=== PATIENT | male | born 1990 | race Caucasian/White ===

== ENCOUNTER → 2021-08-25 | Outpatient (CLI) | payer OTHER ==
[~2021-08-25] MED LIST: ADDERAL; CODACE30 PO; GENT.3OPSA IO; IMIP10; RXCODACET PO; TYLENOL 650 MG
== END ==
LOC: LAB 19:25 → LAB SHORT 19:25
DX: S81.802A Unspecified open wound, left lower leg, initial encounter (principal)
CPT/HCPCS: 87070; 87075; 87205

== ENCOUNTER 2021-08-31 05:47 | Day surgery (SDC) | payer SELFPAY | END 2021-08-31 23:00 | disposition home or self-care (01) | LOC: WOUND 05:47 | DX: S81.802A Unspecified open wound, left lower leg, initial encounter (principal); X58.XXXA Exposure to other specified factors, initial encounter | CPT/HCPCS: A9270 ==

== ENCOUNTER 2021-09-10 01:16 | Day surgery (SDC) | payer SELFPAY | END 2021-09-10 22:58 | disposition home or self-care (01) | LOC: WOUND 01:16 | DX: L97.822 Non-pressure chronic ulcer of other part of left lower leg with fat layer exposed (principal) | CPT/HCPCS: A9270; G0463 ==

== ENCOUNTER 2025-03-20 22:52 | Emergency (ER) | payer SELFPAY ==
[~2025-03-20] VITALS: Ht 167.6 cm; Wt 127.0 kg
[2025-03-20 23:45] VITALS: BP 139/104
== END 2025-03-21 00:58 | disposition home or self-care (01) ==
LOC: ER 22:52
DX: S81.801A Unspecified open wound, right lower leg, initial encounter (principal); V86.55XA Driver of 3- or 4- wheeled all-terrain vehicle (ATV) injured in nontraffic accident, initial encounter
CPT/HCPCS: 99282

== ENCOUNTER 2025-04-05 12:59 | Emergency (ER) | payer OTHER ==
[~2025-04-05] VITALS: Ht 167.6 cm; Wt 127.0 kg
[2025-04-05 14:48] VITALS: BP 173/113
[2025-04-05] MEDS ORDERED: Cephalexin Monohydrate 500 MG Cap PO ONE (14:50)
[2025-04-05] MEDS ORDERED: Diphth,Pertuss(Acell),Tet Vac 0.5 ML VIAL IM ONE (14:50)
[2025-04-05] MEDS ORDERED: CEPH500 PO (14:51)
== END 2025-04-05 16:30 | disposition home or self-care (01) ==
LOC: ER 12:59
DX: S81.831D Puncture wound without foreign body, right lower leg, subsequent encounter (principal); L03.115 Cellulitis of right lower limb; V86.55XD Driver of 3- or 4- wheeled all-terrain vehicle (ATV) injured in nontraffic accident, subsequent encounter; Z59.89 Other problems related to housing and economic circumstances; Z79.2 Long term (current) use of antibiotics; Z79.899 Other long term (current) drug therapy
CPT/HCPCS: 90471; 90715; 99283-25; A9270

== ENCOUNTER 2025-05-29 03:15 | Day surgery (SDC) | payer OTHER ==
[~2025-05-29 03:15] MED LIST changes: +CEPH500 PO
[2025-05-29] MEDS ORDERED: Lidocaine HCl 4% Cream 5 GM ONE (13:44)
== END 2025-05-29 23:00 | disposition home or self-care (01) ==
LOC: WOUND 03:15
DX: L97.812 Non-pressure chronic ulcer of other part of right lower leg with fat layer exposed (principal); L97.822 Non-pressure chronic ulcer of other part of left lower leg with fat layer exposed; I87.2 Venous insufficiency (chronic) (peripheral)
CPT/HCPCS: A6213; A9270; G0463

== ENCOUNTER 2025-06-05 01:55 | Day surgery (SDC) | payer OTHER ==
[2025-06-05] MEDS ORDERED: Lidocaine HCl 4% Cream 5 GM ONE (11:27)
== END 2025-06-05 23:00 | disposition home or self-care (01) ==
LOC: WOUND 01:55
DX: L97.812 Non-pressure chronic ulcer of other part of right lower leg with fat layer exposed (principal); L97.822 Non-pressure chronic ulcer of other part of left lower leg with fat layer exposed; I87.2 Venous insufficiency (chronic) (peripheral)
CPT/HCPCS: A6213; A9270

== ENCOUNTER 2025-06-12 03:40 | Day surgery (SDC) | payer OTHER ==
[2025-06-12] MEDS ORDERED: Lidocaine HCl 4% Cream 5 GM ONE (10:59)
== END 2025-06-12 23:00 | disposition home or self-care (01) ==
LOC: WOUND 03:40
DX: L97.812 Non-pressure chronic ulcer of other part of right lower leg with fat layer exposed (principal); L97.822 Non-pressure chronic ulcer of other part of left lower leg with fat layer exposed; I87.2 Venous insufficiency (chronic) (peripheral)
CPT/HCPCS: A6213; A9270

== ENCOUNTER 2025-06-19 03:04 | Day surgery (SDC) | payer OTHER ==
[2025-06-19] MEDS ORDERED: Lidocaine HCl 4% Cream 5 GM ONE (13:28)
== END 2025-06-19 23:00 | disposition home or self-care (01) ==
LOC: WOUND 03:04
DX: L97.812 Non-pressure chronic ulcer of other part of right lower leg with fat layer exposed (principal); L97.822 Non-pressure chronic ulcer of other part of left lower leg with fat layer exposed; I87.2 Venous insufficiency (chronic) (peripheral)
CPT/HCPCS: A6213; A9270

== ENCOUNTER 2025-06-26 03:44 | Day surgery (SDC) | payer OTHER ==
[2025-06-26] MEDS ORDERED: Lidocaine HCl 4% Cream 5 GM ONE (12:55)
== END 2025-06-26 23:00 | disposition home or self-care (01) ==
LOC: WOUND 03:44
DX: L97.812 Non-pressure chronic ulcer of other part of right lower leg with fat layer exposed (principal); L97.822 Non-pressure chronic ulcer of other part of left lower leg with fat layer exposed; I87.2 Venous insufficiency (chronic) (peripheral)
CPT/HCPCS: A6213; A9270

== ENCOUNTER → 2025-07-03 | Day surgery (SDC) | payer OTHER ==
[~2025-07-03] MED LIST changes: +Lidocaine HCl 4% Cream 5 GM ONE
== END | disposition home or self-care (01) ==
LOC: WOUND
DX: L97.812 Non-pressure chronic ulcer of other part of right lower leg with fat layer exposed (principal); L97.822 Non-pressure chronic ulcer of other part of left lower leg with fat layer exposed; I87.2 Venous insufficiency (chronic) (peripheral)
CPT/HCPCS: A6213; A9270

== ENCOUNTER 2025-07-17 07:52 | Day surgery (SDC) | payer OTHER ==
[~2025-07-17 07:52] MED LIST changes: -Lidocaine HCl 4% Cream 5 GM ONE
[2025-07-17] MEDS ORDERED: Lidocaine HCl 4% Cream 5 GM ONE (14:50)
== END 2025-07-17 23:00 | disposition home or self-care (01) ==
LOC: WOUND 07:52
DX: L97.812 Non-pressure chronic ulcer of other part of right lower leg with fat layer exposed (principal); L97.822 Non-pressure chronic ulcer of other part of left lower leg with fat layer exposed; I87.2 Venous insufficiency (chronic) (peripheral)
CPT/HCPCS: A6213; A9270

== ENCOUNTER 2025-07-24 04:23 | Day surgery (SDC) | payer OTHER ==
[2025-07-24] MEDS ORDERED: Lidocaine HCl 4% Cream 5 GM ONE (13:05)
== END 2025-07-24 23:00 | disposition home or self-care (01) ==
LOC: WOUND 04:23
DX: L97.815 Non-pressure chronic ulcer of other part of right lower leg with muscle involvement without evidence of necrosis (principal); L97.822 Non-pressure chronic ulcer of other part of left lower leg with fat layer exposed; T14.8XXD Other injury of unspecified body region, subsequent encounter; I87.2 Venous insufficiency (chronic) (peripheral)
CPT/HCPCS: A6213; A9270

== ENCOUNTER 2025-07-31 02:52 | Day surgery (SDC) | payer OTHER ==
[2025-07-31] MEDS ORDERED: Lidocaine HCl 4% Cream 5 GM ONE (13:00)
== END 2025-07-31 23:00 | disposition home or self-care (01) ==
LOC: WOUND 02:52
DX: L97.812 Non-pressure chronic ulcer of other part of right lower leg with fat layer exposed (principal); L97.822 Non-pressure chronic ulcer of other part of left lower leg with fat layer exposed; T14.8XXA Other injury of unspecified body region, initial encounter; I87.2 Venous insufficiency (chronic) (peripheral); X58.XXXA Exposure to other specified factors, initial encounter
CPT/HCPCS: A6213; A9270

== ENCOUNTER 2025-08-07 02:18 | Day surgery (SDC) | payer OTHER ==
[2025-08-07] MEDS ORDERED: Lidocaine HCl 4% Cream 5 GM ONE (14:38)
== END 2025-08-07 23:00 | disposition home or self-care (01) ==
LOC: WOUND 02:18
DX: L97.815 Non-pressure chronic ulcer of other part of right lower leg with muscle involvement without evidence of necrosis (principal); S81.802D Unspecified open wound, left lower leg, subsequent encounter; X58.XXXD Exposure to other specified factors, subsequent encounter; I87.2 Venous insufficiency (chronic) (peripheral)
CPT/HCPCS: A6213; A9270; G0463

== ENCOUNTER 2025-08-14 02:31 | Day surgery (SDC) | payer OTHER ==
[2025-08-14] MEDS ORDERED: Lidocaine HCl 4% Cream 5 GM ONE (13:32)
== END 2025-08-14 23:00 | disposition home or self-care (01) ==
LOC: WOUND 02:31
DX: L97.812 Non-pressure chronic ulcer of other part of right lower leg with fat layer exposed (principal); L97.822 Non-pressure chronic ulcer of other part of left lower leg with fat layer exposed; T14.8XXD Other injury of unspecified body region, subsequent encounter; I87.2 Venous insufficiency (chronic) (peripheral)
CPT/HCPCS: A6213; A9270

== ENCOUNTER 2025-08-21 04:40 | Day surgery (SDC) | payer OTHER ==
[2025-08-21] MEDS ORDERED: Lidocaine HCl 4% Cream 5 GM ONE (09:53)
== END 2025-08-21 23:00 | disposition home or self-care (01) ==
LOC: WOUND 04:40
DX: L97.812 Non-pressure chronic ulcer of other part of right lower leg with fat layer exposed (principal); L97.822 Non-pressure chronic ulcer of other part of left lower leg with fat layer exposed; T14.8XXD Other injury of unspecified body region, subsequent encounter; I87.2 Venous insufficiency (chronic) (peripheral)
CPT/HCPCS: 93971; A6213; A9270

== ENCOUNTER 2025-08-28 02:15 | Day surgery (SDC) | payer OTHER ==
[2025-08-28] MEDS ORDERED: Lidocaine HCl 4% Cream 5 GM ONE (09:07)
== END 2025-08-28 23:00 | disposition home or self-care (01) ==
LOC: WOUND 02:15
DX: L97.815 Non-pressure chronic ulcer of other part of right lower leg with muscle involvement without evidence of necrosis (principal); L97.822 Non-pressure chronic ulcer of other part of left lower leg with fat layer exposed; I87.2 Venous insufficiency (chronic) (peripheral); I10 Essential (primary) hypertension
CPT/HCPCS: A6213; A9270

== ENCOUNTER 2025-09-11 00:22 | Day surgery (SDC) | payer OTHER ==
[2025-09-11] MEDS ORDERED: Lidocaine HCl 4% Cream 5 GM ONE (09:46)
== END 2025-09-11 23:00 | disposition home or self-care (01) ==
LOC: WOUND 00:22
DX: L97.815 Non-pressure chronic ulcer of other part of right lower leg with muscle involvement without evidence of necrosis (principal); S81.802D Unspecified open wound, left lower leg, subsequent encounter; I87.2 Venous insufficiency (chronic) (peripheral); I10 Essential (primary) hypertension
CPT/HCPCS: A6213; A9270; G0463

== ENCOUNTER 2025-09-18 03:03 | Day surgery (SDC) | payer OTHER ==
[2025-09-18] MEDS ORDERED: Lidocaine HCl 4% Cream 5 GM ONE (09:35)
== END 2025-09-18 23:00 | disposition home or self-care (01) ==
LOC: WOUND 03:03
DX: L97.815 Non-pressure chronic ulcer of other part of right lower leg with muscle involvement without evidence of necrosis (principal); S89.92XD Unspecified injury of left lower leg, subsequent encounter; X58.XXXD Exposure to other specified factors, subsequent encounter; I10 Essential (primary) hypertension; I87.2 Venous insufficiency (chronic) (peripheral)
CPT/HCPCS: A6213; A9270; G0463

== ENCOUNTER 2025-09-25 00:38 | Day surgery (SDC) | payer OTHER | END 2025-09-25 23:00 | disposition home or self-care (01) | LOC: WOUND 00:38 | DX: L97.815 Non-pressure chronic ulcer of other part of right lower leg with muscle involvement without evidence of necrosis (principal); L97.822 Non-pressure chronic ulcer of other part of left lower leg with fat layer exposed; I87.2 Venous insufficiency (chronic) (peripheral) | CPT/HCPCS: 93971; A6213; G0463 ==

== ENCOUNTER 2025-10-02 01:47 | Day surgery (SDC) | payer OTHER ==
[2025-10-02] MEDS ORDERED: Lidocaine HCl 4% Cream 5 GM ONE (09:47)
== END 2025-10-02 23:00 | disposition home or self-care (01) ==
LOC: WOUND 01:47
DX: L97.815 Non-pressure chronic ulcer of other part of right lower leg with muscle involvement without evidence of necrosis (principal); L97.822 Non-pressure chronic ulcer of other part of left lower leg with fat layer exposed; I87.2 Venous insufficiency (chronic) (peripheral)
CPT/HCPCS: A6213; A9270; G0463

== ENCOUNTER 2025-10-09 00:13 | Day surgery (SDC) | payer OTHER ==
[2025-10-09] MEDS ORDERED: Lidocaine HCl 4% Cream 5 GM ONE (09:49)
== END 2025-10-09 23:00 | disposition home or self-care (01) ==
LOC: WOUND 00:13
DX: L97.815 Non-pressure chronic ulcer of other part of right lower leg with muscle involvement without evidence of necrosis (principal); S81.802D Unspecified open wound, left lower leg, subsequent encounter; X58.XXXD Exposure to other specified factors, subsequent encounter; I87.2 Venous insufficiency (chronic) (peripheral)
CPT/HCPCS: A6213; A9270; G0463

== ENCOUNTER 2025-10-30 00:16 | Day surgery (SDC) | payer OTHER ==
[2025-10-30] MEDS ORDERED: Lidocaine HCl 4% Cream 5 GM ONE (09:44)
== END 2025-10-30 23:28 | disposition home or self-care (01) ==
LOC: WOUND 00:16
DX: L97.812 Non-pressure chronic ulcer of other part of right lower leg with fat layer exposed (principal); L97.822 Non-pressure chronic ulcer of other part of left lower leg with fat layer exposed; T14.8XXD Other injury of unspecified body region, subsequent encounter; I87.2 Venous insufficiency (chronic) (peripheral); I10 Essential (primary) hypertension; X58.XXXD Exposure to other specified factors, subsequent encounter; Z79.899 Other long term (current) drug therapy
CPT/HCPCS: A6213; A9270

== ENCOUNTER 2025-11-06 00:20 | Day surgery (SDC) | payer OTHER ==
[2025-11-06] MEDS ORDERED: Lidocaine HCl 4% Cream 5 GM ONE (10:51)
== END 2025-11-06 23:00 | disposition home or self-care (01) ==
LOC: WOUND 00:20
DX: L97.812 Non-pressure chronic ulcer of other part of right lower leg with fat layer exposed (principal); L97.822 Non-pressure chronic ulcer of other part of left lower leg with fat layer exposed; I87.2 Venous insufficiency (chronic) (peripheral)
CPT/HCPCS: A6213; A9270; G0463

== ENCOUNTER 2025-11-12 00:26 | Day surgery (SDC) | payer OTHER ==
[2025-11-12] MEDS ORDERED: Lidocaine HCl 4% Cream 5 GM ONE (09:35)
== END 2025-11-12 23:27 | disposition home or self-care (01) ==
LOC: WOUND 00:26
DX: L97.812 Non-pressure chronic ulcer of other part of right lower leg with fat layer exposed (principal); L97.822 Non-pressure chronic ulcer of other part of left lower leg with fat layer exposed; T14.8XXD Other injury of unspecified body region, subsequent encounter; I87.2 Venous insufficiency (chronic) (peripheral)
CPT/HCPCS: A6213; A9270

== ENCOUNTER 2025-11-27 07:42 | Day surgery (SDC) | payer OTHER ==
[2025-11-27] MEDS ORDERED: Lidocaine HCl 4% Cream 5 GM ONE (09:30)
== END 2025-11-27 23:00 | disposition home or self-care (01) ==
LOC: WOUND 07:42
DX: L97.812 Non-pressure chronic ulcer of other part of right lower leg with fat layer exposed (principal); L97.822 Non-pressure chronic ulcer of other part of left lower leg with fat layer exposed; T14.8XXD Other injury of unspecified body region, subsequent encounter; I87.2 Venous insufficiency (chronic) (peripheral); I10 Essential (primary) hypertension; X58.XXXA Exposure to other specified factors, initial encounter
CPT/HCPCS: A6213; A9270; G0463